=== PATIENT | male | born 1960 | race Two or more races ===

== ENCOUNTER 2017-06-02 19:58 | Emergency (ER) | payer MEDICAID ==
[~2017-06-02] VITALS: Ht 177.8 cm; Wt 74.8 kg
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
--- NOTE | 2017-06-02 20:17 | NUR ---
DR. DAMON AT BEDSIDE
[2017-06-02] MEDS ORDERED: CEPHALEXIN MONOHYDRATE 500 MG CAPSULE PO ONE (20:30)
[2017-06-02] MEDS ORDERED: SODIUM BICARBONATE 4.2 % (NEUT) 5 ML VIAL TP ONE (20:30)
[2017-06-02] MEDS ORDERED: LIDOCAINE 1%-EPI 1:100,000 20 ML VIAL TP ONE (20:30)
[2017-06-02 21:04] VITALS: BP 135/87
[2017-06-02] MEDS ORDERED: CEPHALEXIN MONOHYDRATE 500 MG CAPSULE ONE (21:11)
== END 2017-06-02 21:04 | disposition home or self-care (01) ==
LOC: ER 20:07
DX: S01.81XA Laceration without foreign body of other part of head, initial encounter (principal); W22.8XXA Striking against or struck by other objects, initial encounter; Y93.89 Activity, other specified; Y92.89 Other specified places as the place of occurrence of the external cause; Y99.8 Other external cause status
CPT/HCPCS: 12053; 99284; A4663; J3490 ×2